=== PATIENT | female | born 1940 | race African-American/Black ===

== ENCOUNTER 2024-03-19 15:20 | Inpatient (IN) | payer OTHER ==
[2024-03-19 16:12] VITALS: BMI 28.7
[2024-03-19 17:27] LABS: BASO % 0.7 % (0-2.0); EOS % 3.9 % (0-4.5); HEMATOCRIT 35.3 % (32.4-45.2); HEMOGLOBIN 11.9 GM/dL (10.7-15.3); LYMPH % 28.7 % (8-40); MCH 31.4 pg (25.7-33.7); MCHC 33.6 g/dl (32.0-36.0); MEAN CELL VOLUME 93.5 fl (80-96); MEAN PLT VOLUME 7.8 fl (7.5-11.1); MONO % 7.9 % (3.8-10.2); NEUT % 58.8 % (42.8-82.8); PLATELET COUNT 370 10^3/uL (134-434); RBC 3.78 M/mm3 (3.60-5.2); RDW 13.2 % (11.6-15.6); WHITE BLOOD COUNT 9.5 K/mm3 (4.0-10.0)
[2024-03-19 18:28] LABS: ERYTHROCYTE SEDIMENTATION RATE 94 mm/hr (0-30)
[2024-03-19] MEDS: ACETAMINOPHEN 1000 MG/100 ML BAG IVPB ONE (18:45)
[2024-03-19] MEDS ORDERED: ACETAMINOPHEN INJECTION 100 ML ONE (18:53)
[2024-03-19] MEDS ORDERED: CLINDAMYCIN 600MG PREMIX IVPB 600 MG/50 ML BAG IVPB ONE (18:54)
[2024-03-19 19:02] LABS: CHLORIDE 106 mmol/L (98-107); SODIUM 135 mmol/L (136-145)
[2024-03-19 19:03] LABS: CALCIUM 9.5 mg/dL (8.5-10.1)
[2024-03-19 19:04] LABS: ALBUMIN 3.1 g/dl (3.4-5.0); BLOOD UREA NITROGEN 14.5 mg/dL (7-18); CO2 25 mmol/L (21-32); GLUCOSE,RANDOM 102 mg/dL (74-106)
[2024-03-19 19:07] LABS: CREATININE 0.8 mg/dL (0.55-1.3); SGOT/AST 59 U/L (15-37); SGPT/ALT 23 U/L (13-61)
[2024-03-19 19:09] LABS: BILIRUBIN,TOTAL 0.7 mg/dL (0.2-1); TOT PROT 8.2 g/dl (6.4-8.2)
[2024-03-19] MEDS: CLINDAMYCIN 600MG PREMIX IVPB 600 MG/50 ML BAG IVPB ONE (19:09)
[2024-03-19 19:10] LABS: ALK PHOS 142 U/L (45-117)
[2024-03-19 19:11] LABS: ANION GAP 4 mmol/L (4-13); POTASSIUM 6.8 mmol/L (3.5-5.1)
[2024-03-19 22:00] LABS: POTASSIUM 4.7 mmol/L (3.5-5.1)
[2024-03-19 22:03] LABS: CALCIUM 9.5 mg/dL (8.5-10.1)
[2024-03-19 22:04] LABS: BLOOD UREA NITROGEN 15.7 mg/dL (7-18)
[2024-03-19 22:07] LABS: CREATININE 0.7 mg/dL (0.55-1.3)
[2024-03-20] MEDS: PIPERACILLIN/TAZOB 3.375 GM 50 ML IVPB SCH (09:01)
[2024-03-20] MEDS ORDERED: FOAM BANDAGE TP SCH (10:00)
[2024-03-20] MEDS ORDERED: LISINOPRIL 10 MG TABLET GT SCH (10:00)
[2024-03-20] MEDS ORDERED: ASCORBIC ACID 500 MG/5 ML UNIT DOSE CUP GT SCH (10:00)
[2024-03-20] MEDS ORDERED: METOPROLOL TARTRATE 25 MG TABLET (FP) GT SCH (10:00)
[2024-03-20] MEDS ORDERED: MEDIHONEY TP SCH (10:00)
[2024-03-20 10:20] LABS: HEMATOCRIT 33.5 % (32.4-45.2); HEMOGLOBIN 11.2 GM/dL (10.7-15.3); MCH 31.9 pg (25.7-33.7); MCHC 33.6 g/dl (32.0-36.0); MEAN PLT VOLUME 7.8 fl (7.5-11.1); PLATELET COUNT 350 10^3/uL (134-434); RBC 3.52 M/mm3 (3.60-5.2); WHITE BLOOD COUNT 8.2 K/mm3 (4.0-10.0)
[2024-03-20 10:32] LABS: POTASSIUM 4.5 mmol/L (3.5-5.1)
[2024-03-20 10:43] LABS: CALCIUM 9.9 mg/dL (8.5-10.1)
[2024-03-20 10:44] LABS: BLOOD UREA NITROGEN 14.3 mg/dL (7-18); MAGNESIUM 2.3 mg/dL (1.8-2.4)
[2024-03-20 10:47] LABS: CREATININE 0.6 mg/dL (0.55-1.3); PHOSPHOROUS 3.7 mg/dL (2.5-4.9)
[2024-03-20 10:48] LABS: BILIRUBIN,TOTAL 0.6 mg/dL (0.2-1)
[2024-03-20 10:49] LABS: TOT PROT 7.4 g/dl (6.4-8.2)
[2024-03-20] MEDS: PIPERACILLIN/TAZOB 3.375 GM 3.375 GM in DEXTROSE 5%-WATER - 50 ML IVPB SCH (11:12)
[2024-03-20] MEDS: DOXYCYCLINE INJECTION 100 MG in DEXTROSE 5%-WATER 100 ML IVPB SCH (14:33)
[2024-03-20] MEDS ORDERED: FAMOTIDINE 20 MG/2.5 ML ORAL LIQUID GT SCH (22:00)
[2024-03-20] MEDS ORDERED: ATORVASTATIN CA 40 MG TABLET (FP) GT SCH (22:00)
[2024-03-21 11:07] LABS: BASO % 0.6 % (0-2.0); EOS % 4.8 % (0-4.5); HEMATOCRIT 34.2 % (32.4-45.2); HEMOGLOBIN 11.4 GM/dL (10.7-15.3); LYMPH % 29.9 % (8-40); MCH 31.5 pg (25.7-33.7); MCHC 33.5 g/dl (32.0-36.0); MEAN CELL VOLUME 94.1 fl (80-96); MEAN PLT VOLUME 7.8 fl (7.5-11.1); MONO % 9.6 % (3.8-10.2); NEUT % 55.1 % (42.8-82.8); PLATELET COUNT 363 10^3/uL (134-434); RBC 3.63 M/mm3 (3.60-5.2); RDW 13.1 % (11.6-15.6); WHITE BLOOD COUNT 7.9 K/mm3 (4.0-10.0)
[2024-03-21 11:12] LABS: POTASSIUM 4.2 mmol/L (3.5-5.1)
[2024-03-21 11:14] LABS: CALCIUM 9.8 mg/dL (8.5-10.1)
[2024-03-21 11:15] LABS: MAGNESIUM 2.1 mg/dL (1.8-2.4)
[2024-03-21 11:17] LABS: BLOOD UREA NITROGEN 14.6 mg/dL (7-18)
[2024-03-21 11:21] LABS: CREATININE 0.9 mg/dL (0.55-1.3)
[2024-03-21 18:50] VITALS: RESP 18
[2024-03-22 02:05] VITALS: BP 142/78; PULSE 91; TEMP 98
== END 2024-03-22 02:30 | DRG 919 ==
LOC: JER 15:20 → JERBED 19:13 → J6S 03-20 01:05 → OBSVTOIN 03-20 14:01
PROVIDERS: ADMIT Internal Medicine; ATTEND Internal Medicine
PROC: 0D20XUZ Change Feeding Device in Upper Intestinal Tract, External Approach (ICD-10-PCS; principal; 2024-03-20)
DX: T85.528A Displacement of other gastrointestinal prosthetic devices, implants and grafts, initial encounter (principal); L89.154 Pressure ulcer of sacral region, stage 4; I69.351 Hemiplegia and hemiparesis following cerebral infarction affecting right dominant side; L03.311 Cellulitis of abdominal wall; E78.5 Hyperlipidemia, unspecified; I48.91 Unspecified atrial fibrillation; I10 Essential (primary) hypertension; Y83.8 Other surgical procedures as the cause of abnormal reaction of the patient, or of later complication, without mention of misadventure at the time of the procedure
CPT/HCPCS: 0241U-QW; 36415; 49450; 74177-TC; 80048; 80053; 82962; 83735; 84100; 85025; 85027; 85651; 86140; 86850; 86900; 86901; 87070; 87186; 87205; 93005; 93010; 99285-25; E0372; G0378; J0131

== ENCOUNTER 2024-03-29 13:20 | Emergency (ER) | payer OTHER ==
[2024-03-29 14:00] VITALS: TEMP 98.9; BMI 32.2
[2024-03-29] MEDS: IOHEXOL (OMNIPAQUE IV) 350 MG/ML - 100 ML BOTTLE PEG ONE (15:05)
[2024-03-29 22:20] VITALS: BP 117/60; PULSE 94; RESP 18
== END 2024-03-29 23:00 ==
LOC: JER 13:20
DX: Z43.1 Encounter for attention to gastrostomy (principal)
CPT/HCPCS: 74018-TC-FY; 99284-25

== ENCOUNTER 2024-04-02 14:44 | Emergency (ER) | payer OTHER ==
[2024-04-02 16:15] VITALS: RESP 12; BMI 27.3
[2024-04-02 16:57] VITALS: TEMP 98.5
[2024-04-03 01:47] VITALS: BP 147/78; PULSE 101
== END 2024-04-03 02:01 ==
LOC: JER 14:44
PROC: 0DH60UZ Insertion of Feeding Device into Stomach, Open Approach (ICD-10-PCS; principal; 2024-04-02)
DX: K94.23 Gastrostomy malfunction (principal)
CPT/HCPCS: 74018-TC-FY; 99283-25

== ENCOUNTER 2024-05-19 16:25 | Inpatient (IN) | payer OTHER ==
[2024-05-19] MEDS: SODIUM CHLORIDE 0.9% 500 ML INFUS.BAG IV ONE (21:19)
[2024-05-19 21:24] LABS: BASO % 0.3 % (0-2.0); EOS % 2.3 % (0-4.5); HEMATOCRIT 37.8 % (32.4-45.2); HEMOGLOBIN 12.8 GM/dL (10.7-15.3); LYMPH % 41.2 % (8-40); MCH 32.1 pg (25.7-33.7); MCHC 33.9 g/dl (32.0-36.0); MEAN CELL VOLUME 94.9 fl (80-96); MEAN PLT VOLUME 9.5 fl (7.5-11.1); MONO % 8.6 % (3.8-10.2); NEUT % 47.6 % (42.8-82.8); PLATELET COUNT 259 10^3/uL (134-434); RBC 3.98 M/mm3 (3.60-5.2); RDW 14.5 % (11.6-15.6); WHITE BLOOD COUNT 8.6 K/mm3 (4.0-10.0)
[2024-05-19 21:32] LABS: INR 1.04 (0.83-1.09); PROTHROMBIN TIME (PATIENT) 11.9 SEC (9.7-13.0)
[2024-05-19 21:35] LABS: ACTIVATED PTT 35.1 SECONDS (25.2-36.5)
[2024-05-19 21:48] LABS: POTASSIUM 4.6 mmol/L (3.5-5.1)
[2024-05-19 21:50] LABS: ALBUMIN 3.7 g/dl (3.4-5.0); BLOOD UREA NITROGEN 20.6 mg/dL (7-18); CALCIUM 10.2 mg/dL (8.5-10.1)
[2024-05-19 21:53] LABS: CREATININE 0.8 mg/dL (0.55-1.3)
[2024-05-19 21:55] LABS: BILIRUBIN,TOTAL 0.6 mg/dL (0.2-1); TOT PROT 8.2 g/dl (6.4-8.2)
[2024-05-20] MEDS ORDERED: METOPROLOL TARTRATE 5 MG/5 ML VIAL IVPUSH PRN ×2 (03:16→06:07)
[2024-05-20] MEDS: SODIUM CHLORIDE 1,000 ML IV SCH (07:12)
[2024-05-20 08:08] LABS: BASO % 0.2 % (0-2.0); EOS % 2.2 % (0-4.5); HEMATOCRIT 33.9 % (32.4-45.2); HEMOGLOBIN 11.6 GM/dL (10.7-15.3); LYMPH % 28.3 % (8-40); MCH 32.3 pg (25.7-33.7); MCHC 34.1 g/dl (32.0-36.0); MEAN CELL VOLUME 94.9 fl (80-96); MEAN PLT VOLUME 9.7 fl (7.5-11.1); MONO % 9.4 % (3.8-10.2); NEUT % 59.9 % (42.8-82.8); PLATELET COUNT 221 10^3/uL (134-434); RBC 3.58 M/mm3 (3.60-5.2); RDW 14.4 % (11.6-15.6); WHITE BLOOD COUNT 7.8 K/mm3 (4.0-10.0)
[2024-05-20 08:33] LABS: POTASSIUM 4.3 mmol/L (3.5-5.1)
[2024-05-20 08:35] LABS: CALCIUM 9.1 mg/dL (8.5-10.1)
[2024-05-20 08:36] LABS: ALBUMIN 3.4 g/dl (3.4-5.0); BLOOD UREA NITROGEN 19.2 mg/dL (7-18)
[2024-05-20 08:39] LABS: CREATININE 0.7 mg/dL (0.55-1.3); PHOSPHOROUS 2.8 mg/dL (2.5-4.9)
[2024-05-20 08:41] LABS: BILIRUBIN,TOTAL 0.7 mg/dL (0.2-1); TOT PROT 7.1 g/dl (6.4-8.2)
[2024-05-20 09:26] LABS: INR 1.09 (0.83-1.09); PROTHROMBIN TIME (PATIENT) 12.3 SEC (9.7-13.0)
[2024-05-20] MEDS: LEPTOSPERMUM HONEY (MEDIHONEY) TP SCH (10:01)
[2024-05-20] MEDS: ENOXAPARIN NA (PORCINE) 40 MG/0.4 ML DISP.SYRIN SQ SCH (17:21)
[2024-05-20] MEDS: DEXTROSE 5%-NORMAL SALINE 1,000 ML IV SCH (18:11)
[2024-05-21 09:33] LABS: BASO % 0.3 % (0-2.0); EOS % 2.6 % (0-4.5); HEMATOCRIT 35.2 % (32.4-45.2); HEMOGLOBIN 11.9 GM/dL (10.7-15.3); LYMPH % 25.6 % (8-40); MCH 32.2 pg (25.7-33.7); MCHC 33.9 g/dl (32.0-36.0); MEAN PLT VOLUME 9.4 fl (7.5-11.1); MONO % 6.7 % (3.8-10.2); NEUT % 64.8 % (42.8-82.8); PLATELET COUNT 220 10^3/uL (134-434); RDW 14.3 % (11.6-15.6); WHITE BLOOD COUNT 7.3 K/mm3 (4.0-10.0)
[2024-05-21] MEDS: PANTOPRAZOLE SODIUM 40 MG VIAL IVPUSH SCH (09:48)
[2024-05-21 10:03] LABS: ALBUMIN 3.1 g/dl (3.4-5.0)
[2024-05-21 10:04] LABS: BILIRUBIN,TOTAL 0.8 mg/dL (0.2-1); BLOOD UREA NITROGEN 14.9 mg/dL (7-18); TOT PROT 6.8 g/dl (6.4-8.2)
[2024-05-21 10:06] LABS: CREATININE 0.7 mg/dL (0.55-1.3)
[2024-05-21 10:07] LABS: CALCIUM 9.4 mg/dL (8.5-10.1)
[2024-05-21 15:36] VITALS: BMI 32.8
[2024-05-22 07:46] LABS: BASO % 0.4 % (0-2.0); EOS % 4.4 % (0-4.5); HEMATOCRIT 34.1 % (32.4-45.2); HEMOGLOBIN 11.7 GM/dL (10.7-15.3); LYMPH % 36.8 % (8-40); MCH 32.5 pg (25.7-33.7); MCHC 34.4 g/dl (32.0-36.0); MEAN CELL VOLUME 94.4 fl (80-96); MONO % 7.7 % (3.8-10.2); NEUT % 50.7 % (42.8-82.8); PLATELET COUNT 218 10^3/uL (134-434); RBC 3.62 M/mm3 (3.60-5.2); RDW 14.3 % (11.6-15.6); WHITE BLOOD COUNT 6.5 K/mm3 (4.0-10.0)
[2024-05-22 07:53] LABS: POTASSIUM 3.9 mmol/L (3.5-5.1)
[2024-05-22 07:59] LABS: ALBUMIN 3.3 g/dl (3.4-5.0); CALCIUM 9.7 mg/dL (8.5-10.1)
[2024-05-22 08:03] LABS: CREATININE 0.6 mg/dL (0.55-1.3)
[2024-05-22 08:04] LABS: BILIRUBIN,TOTAL 0.8 mg/dL (0.2-1)
[2024-05-22] MEDS: FOAM BANDAGE TP SCH (11:04)
[2024-05-22] MEDS: NYSTATIN 500,000 UNITS/5 ML SUSPENSION PO SCH (12:46)
[2024-05-22] MEDS: MINERAL OIL/PET HY-PHL TOPICAL OINTMENT 454 GM JAR TP SCH (12:46)
[2024-05-23] MEDS: RIVAROXABAN 20 MG TABLET PO SCH (17:36)
[2024-05-23] MEDS: LISINOPRIL 10 MG TABLET GT SCH (17:36)
[2024-05-23] MEDS: ATORVASTATIN CA 40 MG TABLET (FP) GT SCH (22:45)
[2024-05-23] MEDS: METOPROLOL TARTRATE 25 MG TABLET (FP) GT SCH (22:45)
[2024-05-24] MEDS ORDERED: PANTOPRAZOLE 40 MG TABLET PO SCH (10:00)
[2024-05-24] MEDS: FAMOTIDINE 20 MG/2.5 ML ORAL LIQUID PEG SCH (10:19)
[2024-05-25 09:24] LABS: BASO % 0.3 % (0-2.0); EOS % 6.6 % (0-4.5); HEMATOCRIT 30.7 % (32.4-45.2); HEMOGLOBIN 10.5 GM/dL (10.7-15.3); LYMPH % 41.5 % (8-40); MCH 32.3 pg (25.7-33.7); MCHC 34.1 g/dl (32.0-36.0); MEAN CELL VOLUME 94.8 fl (80-96); MEAN PLT VOLUME 8.4 fl (7.5-11.1); MONO % 8.5 % (3.8-10.2); NEUT % 43.1 % (42.8-82.8); PLATELET COUNT 196 10^3/uL (134-434); RBC 3.24 M/mm3 (3.60-5.2); RDW 14.6 % (11.6-15.6); WHITE BLOOD COUNT 5.8 K/mm3 (4.0-10.0)
[2024-05-25 09:58] LABS: POTASSIUM 3.9 mmol/L (3.5-5.1)
[2024-05-25 10:03] LABS: ALBUMIN 2.9 g/dl (3.4-5.0)
[2024-05-25 10:04] LABS: BLOOD UREA NITROGEN 11.8 mg/dL (7-18); MAGNESIUM 1.7 mg/dL (1.8-2.4)
[2024-05-25 10:07] LABS: BILIRUBIN,TOTAL 0.9 mg/dL (0.2-1); CREATININE 0.6 mg/dL (0.55-1.3); TOT PROT 6.3 g/dl (6.4-8.2)
[2024-05-26] MEDS: MAGNESIUM 1GM/D5W 100ML - 100 ML IVPB IVPB ONE (09:16)
[2024-05-26] MEDS: DEXTROSE 5%-WATER - 1,000 ML IV SCH (12:07)
[2024-05-26] MEDS: AMINO ACIDS/PROTEIN HYDROLYS 30 ML LIQUID.PKT PO SCH (17:30)
[2024-05-27 07:35] VITALS: BP 116/77; PULSE 71; RESP 18; TEMP 98.1
[2024-05-27 09:38] LABS: BASO % 0.2 % (0-2.0); EOS % 5.4 % (0-4.5); HEMATOCRIT 34.1 % (32.4-45.2); HEMOGLOBIN 11.6 GM/dL (10.7-15.3); LYMPH % 34.7 % (8-40); MCH 32.2 pg (25.7-33.7); MCHC 33.9 g/dl (32.0-36.0); MEAN PLT VOLUME 8.6 fl (7.5-11.1); MONO % 7.7 % (3.8-10.2); PLATELET COUNT 206 10^3/uL (134-434); RBC 3.59 M/mm3 (3.60-5.2); RDW 14.6 % (11.6-15.6); WHITE BLOOD COUNT 6.2 K/mm3 (4.0-10.0)
[2024-05-27 10:00] LABS: POTASSIUM 4.4 mmol/L (3.5-5.1)
[2024-05-27 10:03] LABS: ALBUMIN 3.2 g/dl (3.4-5.0); CALCIUM 9.5 mg/dL (8.5-10.1)
[2024-05-27 10:04] LABS: BLOOD UREA NITROGEN 15.5 mg/dL (7-18)
[2024-05-27 10:06] LABS: CREATININE 0.7 mg/dL (0.55-1.3)
[2024-05-27 10:07] LABS: BILIRUBIN,TOTAL 0.8 mg/dL (0.2-1); TOT PROT 6.8 g/dl (6.4-8.2)
== END 2024-05-27 13:14 | DRG 393 ==
LOC: JER 16:25 → JERBED 19:21 → OBSVTOIN 21:00 → J7W 05-20 03:29
PROVIDERS: ADMIT Internal Medicine
PROC: 0DH63UZ Insertion of Feeding Device into Stomach, Percutaneous Approach (ICD-10-PCS; principal; 2024-05-22)
PROC: 3E0G76Z Introduction of Nutritional Substance into Upper GI, Via Natural or Artificial Opening (ICD-10-PCS; 2024-05-22)
DX: Z43.1 Encounter for attention to gastrostomy (principal); L89.153 Pressure ulcer of sacral region, stage 3; R53.2 Functional quadriplegia; I69.351 Hemiplegia and hemiparesis following cerebral infarction affecting right dominant side; E87.0 Hyperosmolality and hypernatremia; I10 Essential (primary) hypertension; E78.5 Hyperlipidemia, unspecified; I48.91 Unspecified atrial fibrillation
CPT/HCPCS: 36415; 49440; 71045-TC-FY; 80053; 83735; 84100; 84460; 85025; 85610; 85730; 86850; 86900; 86901; 87481; 93005; 93010; 97116-GP; 97161-GP; 99285-25; G0378